=== PATIENT | female | born 1990 | race Caucasian/White ===

== ENCOUNTER 2016-11-14 06:17 | Inpatient (IN) | payer OTHER ==
[2016-11-14 07:12] LABS: APPEARANCE,URINE CLEAR; BILIRUBIN,URINE NEGATIVE (NEGATIVE); GLUCOSE, URINE NEGATIVE (NEGATIVE); KETONES,URINE NEGATIVE (NEGATIVE); LEUKOCYTE ESTERASE,URINE TRACE (NEGATIVE); NITRITE,URINE NEGATIVE (NEGATIVE); PROTEIN,URINE NEGATIVE (NEGATIVE); URINE SPECIFIC GRAVITY 1.004; UROBILINOGEN,URINE NEGATIVE mg/dL (<2.0)
[2016-11-14 07:22] LABS: URINE BARBITURATES SCREEN NEGATIVE; URINE METHADONE SCREEN NEGATIVE; URINE OPIATES LOW NEGATIVE; URINE PHENCYCLIDINE SCREEN NEGATIVE
[2016-11-14 07:25] LABS: ABSOLUTE EOSINOPHILS # (AUTO) 0.1 10^3/uL (0.0-0.6); ABSOLUTE LYMPHOCYTES (AUTO) 1.2 10^3/uL (0.5-4.7); ABSOLUTE MONOCYTES (AUTO) 0.5 10^3/uL (0.1-1.4); ABSOLUTE NEUT (AUTO) 8.6 10^3/uL (1.7-8.2); BASOPHILS % (AUTO) 0.5 % (0-2); EOSINOPHILS % (AUTO) 0.9 % (0-6); HEMATOCRIT 31.5 % (36.0-47.0); HEMOGLOBIN 10.1 g/dL (12.0-15.5); HGB HCT DIFFERENCE -1.2; LYMPHOCYTES % (AUTO) 11.8 % (13-45); MEAN CORPUSCULAR HEMOGLOBIN 23.1 pg (27.0-33.4); MEAN CORPUSCULAR HGB CONC 32.1 g/dL (32.0-36.0); MEAN CORPUSCULAR VOLUME 72 fl (80-97); MONOCYTES % (AUTO) 4.8 % (3-13); RED BLOOD COUNT 4.37 10^6/uL (3.72-5.28); RED CELL DISTRIBUTION WIDTH 19.2 % (11.5-14.0); WHITE BLOOD COUNT 10.4 10^3/uL (4.0-10.5)
--- NOTE | 2016-11-14 08:01 | L&D Flow Sheet ---
LD Flowsheet Datetime Report Generated by CPN: 11/14/2016 08:00 Datetime: 11/14/2016 07:15 Communication Communication: Report Given to @ A.Abbasi, RN; care relinquished at this time. (Gabriella Field, RN) Datetime: 11/14/2016 07:12 Vital Signs NBP Sys/Nadia/Mean (mmHg): 106 (QS system process) : 69 (QS system process) : 82 (QS system process) Pulse: 81 (QS system process) Datetime: 11/14/2016 07:03 Communication Comments: Call placed to u/s, ETA 10 minutes (Shelby Emelyn, RN) Datetime: 11/14/2016 07:00 Uterine Activity Monitor Mode: External; Palpation ([facility], RN) Frequency (min): 3.5-5.5 ([facility], RN) Quality: Mild/Moderate (Gabriella Field, RN) Duration (sec): 60-100 ([facility], RN) Resting Tone (Palpate): Relaxed (Gabriella Field, RN) Assessment A Monitor Mode: External US (Gabriella Field, RN) FHR Baseline Rate : 115 (Gabriella Field, RN) Variability: Moderate 6-25 bpm (Gabriella Field, RN) Accelerations: None (Gabriella Field, RN) Decelerations: Variable (Gabriella Field, RN) Datetime: 11/14/2016 06:52 Frequency (min): q6 min (Psychiatric) Pain Pain Scale: 4 (Psychiatric) Pain Presence: Intermittent (Psychiatric) Pain Type: Cramping; Contraction (Psychiatric) Pain Location: Abdomen (Psychiatric) Pain Goal: 0 (Psychiatric) Pain Relief Measures: Comfort Measures (Psychiatric) Pain Coping: Talking Through Contractions; Breathing Through Contractions (Psychiatric) Vaginal Exam Vaginal Bleeding: Normal Show (Gabriella Field, RN) Maternal Assessment Level of Consciousness: Fully Conscious (Gabriella Field, RN) DTR's/Clonus: DTRs 1+; No Clonus (Gabriella Field, RN) Headache: Denies (Gabriella Field, RN) Breath Sounds, Left: Clear and Equal (Gabriella Field, RN) Breath Sounds, Right: Clear and Equal (Gabriella Field, RN) Nausea/Vomiting: Denies (Gabriella Field, RN) RUQ Epigastric Pain: Denies (Gabriella Field, RN) Teaching Instructional Method: Verbal; Patient Instructed; Verbalized Understanding (Gabriella Harman, RN) Plan of Care: Plan of Care Discussed (Gabriella Harman, RN) Unit Routine: [place] to Room; Call [place]; Bed; Visiting Policy; Waiting Areas; Phone/Cell Phone Use; Unit Personnel; Handwashing; Flu/Illness Precautions; Monitoring; Safety/Fall Risk Prevention; Bathroom Privileges (Gabriella Harman, RN) Datetime: 11/14/2016 06:40 Vital Signs NBP Sys/Nadia/Mean (mmHg): 116 (QS system process) : 77 (QS system process) : 91 (QS system process) Pulse: 97 (QS system process)
[2016-11-14] MEDS ORDERED: PENICILLIN G-K 5 MILLION UNIT VIAL ONE (08:11)
[2016-11-14] MEDS ORDERED: OXYTOCIN/NORMAL SALINE 20 UNIT/1,000 ML RTUINJ ONE (08:13)
[2016-11-14] MEDS ORDERED: LIDOCAINE 1% INJ-PF (10 MG/ML) 30 ML SDV ONE (08:13)
[2016-11-14] MEDS ORDERED: MISOPROSTOL 0.2 MG TABLET ONE (08:13)
[2016-11-14] MEDS ORDERED: OXYTOCIN/NORMAL SALINE 1,000 ML IV PRN (08:38)
[2016-11-14] MEDS ORDERED: ACETAMINOPHEN WITH CODEINE #3 TABLET PO PRN ×2 (08:38)
[2016-11-14] MEDS ORDERED: DIPH/PERTUSS(ACELL)/TETANUS VAC/PF 0.5 ML SYR (>=10YO) IM PRN (08:38)
[2016-11-14] MEDS ORDERED: ZOLPIDEM TARTRATE 5 MG TABLET PO PRN (08:38)
[2016-11-14] MEDS ORDERED: DIBUCAINE 1% OINTMENT 28 GM TP PRN (08:38)
[2016-11-14] MEDS ORDERED: BENZOCAINE/MENTHOL AEROSOL SPRAY 56 ML TOP PRN (08:38)
[2016-11-14] MEDS ORDERED: MEASLES,MUMPS&RUBELLA VACC/PF 0.5 ML VIAL SUBCUT PRN (08:38)
--- NOTE | 2016-11-14 09:12 | Delivery Summary ---
Del Sum A-C Datetime Report Generated by CPN: 11/14/2016 09:12 ADMISSION DATA Chief Complaint: Uterine Contractions Indication for Induction: Not Applicable Admission Impression: , Intrauterine Admit Provider Comments: 26yo at unknown ega due to no PNC. US done and estimate is 36wks. GBS unknown. PCN for GBS prophy. Ctx regular and stronger. Cvx 9/c/+1. All labs done and GBS collected. Pt has Adoption Agency that she has contacted last evening. DELIVERY PERSONNEL Delivery Doctor:: Aixa Lambert MD Labor and Delivery Nurse:: Valeria Abbasi RNwet plant operator Nurse:: Marjorie Westfall RN Nursery Nurse:: Gali Dickerson RN Student Observers:: Charleen Thrasher [employer] SN Roseanne Hernandez [facility] Furniture Fabricator/CONTRACTS MANAGER: ST [facility] Additional Personnel: : Chanel Lindquist RN MATERNAL INFORMATION Delivery Anesthesia: None Medications After Delivery: Pitocin Drip 20 Units/1000ml NSS Meds After Delivery Comment: 20 units Pitocin in 1 L NS bolusing per order Estimated Blood Loss (ml): 200 Maternal Complications: Precipitous Labor (<3hrs) Provider Comments: VMI delivered in MAGDIEL presentation with compound cord. No nuchal cord. SHoulders and body delivered w/o diffculty. Pt declines skin to skin due to giving up baby for adoption. Perineal laceration repaired. Placenta delivered intact spontaneously. FF at U. Good hemostasis after repair. Mother stable upon provider leaving the room. Baby to Nursery. Apgars 9/9. Weight 6#15oz LABOR SUMMARY EDC: 12/12/2016 00:00 No. Babies in Womb: 1 Attempted: No Labor Anesthesia: None LABOR INFORMATION Reason for Induction: Not Applicable Complete Dilatation: 11/14/2016 08:20 Oxytocin: N/A Group B Beta Strep: unknown Antibiotics # of Doses: 1 Antibiotics Time of Last Dose: 812 Name of Antibiotic Given: PCN Steroids Given: None Reason Steroids Not Administered: Imminent Delivery MEMBRANES Membranes Rupture Method: Artificial Rupture of Membranes: 11/14/2016 08:20 Length of Rupture (hr): 0.03 Amniotic Fluid Color: Clear Amniotic Fluid Amount: Small Amniotic Fluid Odor: Normal STAGES OF LABOR Stage 2 hr: 0 Stage 2 min: 2 Stage 3 hr: 0 Stage 3 min: 3 VAGINAL DELIVERY Episiotomy: None Laceration Extension: First Degree Laceration Type: Perineal Laceration Repair: Yes Laceration Repair Note: Superficial perineal laceration repaired with 3-0 vicryl. Good hemostasis Sponge Count Correct: N/A Sharps Count Correct: Yes CSECTION DELIVERY Primary Indication: N/A Secondary Indication: N/A CSection Incidence: N/A Labor: N/A Elective: N/A BABY A INFORMATION Delivery Date/Time: 11/14/2016 08:22 Method of Delivery: Vaginal Born in Route : No : N/A Forceps: N/A Vacuum Extraction: N/A Shoulder Dystocia : No PRESENTATION/POSITION BABY A Presentation: Cephalic Cephalic Presentation: Vertex Vertex Position: Left Occipital Anterior Breech Presentation: N/A PLACENTA INFORMATION BABY A Placenta Delivery Time : 11/14/2016 08:25 Placenta Method of Delivery: Spontaneous Placenta Status: Delivered SCORES BABY A Heart Rate 1 min: >100 bpm Resp Effort 1 min: Good Cry Reflex Irritability 1 min: Cough or Sneeze or Pulls Away Muscle Tone 1 min: Active Motion Color 1 min: Body [place], Extremities Blue Resuscitation Effort 1 min: Tactile Stimulation SCORE 1 MIN: 9 Heart Rate 5 min: >100 bpm Resp Effort 5 min: Good Cry Reflex Irritability 5 min: Cough or Sneeze or Pulls Away Muscle Tone 5 min: Active Motion Color 5 min: Body [place], Extremities Blue Resuscitation Effort 5 min: N/A SCORE 5 MIN: 9 INFORMATION BABY A Gestational Age at Delivery: 36.0 Gestational Status: Late - 34- 36.6 Weeks Infant Outcome : Liveborn Infant Condition : Stable Sex: Male IDENTIFICATION BABY A Verification Date/Time: 11/14/2016 08:46 ID Band Number: [id number] Mother's Name Verified: Yes RN Verifying : Patricia Abbasi RN / SCory Hamm RN WEIGHT/LENGTH BABY A Birthweight (gm): 3135 Weight (lb): 6 Weight (oz): 15 Length (in): 20.00 Infant Length (cm): 50.80 CORD INFORMATION BABY A No. Cord Vessels: 3 Nuchal Cord : N/A Nuchal Cord- Other: compound cord Suction: Mouth; Nose ASSESSMENT BABY A Infant Complications: Other Infant Complications- Other: terminal meconium Physical Findings at Delivery: Within Normal Limits Infant Respirations: Appears Normal Skin to Skin: No Skin to Skin Time (min): 0 Cross Country/Track And Field Coach/ALS Called : No Care By: Corey Lindquist RNC Transferred To: Nursery BABY B INFORMATION : N/A SIGNATURES Signature: with User ID: Paolo
--- NOTE | 2016-11-14 10:00 | L&D Flow Sheet ---
LD Flowsheet Datetime Report Generated by CPN: 11/14/2016 10:00 Datetime: 11/14/2016 09:52 NBP Sys/Nadia/Mean (mmHg): 107 (QS system process) : 65 (QS system process) : 81 (QS system process) Pulse: 67 (QS system process) Datetime: 11/14/2016 09:36 Stage of : Recovery (Valeriaflavio Abbasi, RN) NBP Sys/Nadia/Mean (mmHg): 107 (QS system process) : 67 (QS system process) : 81 (QS system process) Pulse: 92 (QS system process) Pain Scale: 0 (Valeria Abbasi RN) Pain Presence: None/Denies (Valeria Abbasi RN) Pain Type: N/A (Valeria Abbasi RN) Datetime: 11/14/2016 09:22 NBP Sys/Nadia/Mean (mmHg): 107 (QS system process) : 63 (QS system process) : 80 (QS system process) Pulse: 80 (QS system process) Datetime: 11/14/2016 09:20 Stage of : Recovery (Valeria Abbasi RN) Pain Scale: 0 (Valeria Abbasi RN) Pain Presence: None/Denies (Valeria Abbasi RN) Pain Type: N/A (Valeria Abbasi RN) Datetime: 11/14/2016 09:07 NBP Sys/Nadia/Mean (mmHg): 110 (QS system process) : 64 (QS system process) : 81 (QS system process) Pulse: 82 (QS system process) Datetime: 11/14/2016 09:05 Stage of : Recovery (Valeria Abbasi, RN) Pain Scale: 0 (Valeria Abbasi, RN) Pain Presence: None/Denies (Valeria Abbasi, RN) Pain Type: N/A (Valeria Abbasi, RN) Datetime: 11/14/2016 08:50 Stage of : Recovery (Valeria Abbasi, RN) Pain Scale: 0 (Valeria Abbasi, RN) Pain Presence: None/Denies (Valeria Abbasi, RN) Pain Type: N/A (Valeria Abbasi, RN) Datetime: 11/14/2016 08:35 Stage of : Recovery (Valeria Abbasi RN) NBP Sys/Nadia/Mean (mmHg): 105 (QS system process) : 60 (QS system process) : 78 (QS system process) Pulse: 78 (QS system process) Respirations: 14 (Valeria Abbasi RN) Temperature (F): 97.9 (Valeria Abbasi RN) Temperature (C): 36.6 (QS system process) Pain Scale: 0 (Valeria Abbasi RN) Pain Presence: None/Denies (Valeria Abbasi RN) Pain Type: N/A (Valeria Abbasi RN) Datetime: 11/14/2016 08:25 Stage of : Recovery (Valeria Abbasi RN) Datetime: 11/14/2016 08:21 Pushing: Coached on Pushing (Valeria Abbasi RN) Pushing: No Urge to Push; Involuntary Pushing (Valeria Abbasi, RN) Pushing Position: Pushing with Contractions; Pushing Lithotomy (Valeria Abbasi, RN) Pushing Progress: Descent with Pushing; Presenting Part Visible (Valeria Abbasi RN) Communication Comments: nursery notified of impending delivery (Valeria Abbasi, RN) Datetime: 11/14/2016 08:20 Dilatation (cm): 10.0 (Valeria Abbasi RN) Effacement (%): 100 (Valeria Abbasi, RN) Station: 2 (Valeria Abbasi, RN) Exam by: Dr. Lambert (Valeria Abbasi, RN) Datetime: 11/14/2016 08:18 Communication Comments: Dr. Lambert at bedside (Valeria Abbasi, RN) Datetime: 11/14/2016 08:15 Monitor Mode: External; Palpation (Valeria Abbasi, RN) Frequency (min): 3-4 (Valeria Abbasi, RN) Quality: Moderate (Valeria Abbasi, RN) Duration (sec): 60-80 (Valeria Abbasi, RN) Resting Tone (Palpate): Relaxed (Valeria Abbasi, RN) Monitor Mode: External US (Valeria Abbasi, RN) FHR Baseline Rate : 125 (Valeria Abbasi, RN) Variability: Moderate 6-25 bpm (Valeria Abbasi, RN) Accelerations: 15X15 (Valeria Abbasi, RN) Decelerations: Variable (Valeria Abbasi, RN) Datetime: 11/14/2016 08:14 IV/Blood Work: IV Infusing per Order (Aaliyah Wallis, KARO) Procedures: Consents Signed (Aaliyah Wallis, RN) Datetime: 11/14/2016 08:13 Antibiotics: Penicillin IV (Units) @ 5 million (Valeria Abbasi RN) Datetime: 11/14/2016 08:11 NBP Sys/Nadia/Mean (mmHg): 121 (QS system process) : 87 (QS system process) : 100 (QS system process) Pulse: 78 (QS system process) Procedures: Consents Signed (Valeria Abbasi RN) LaborFlag: Labor (QS system process) Datetime: 11/14/2016 08:09 Dilatation (cm): 9.0 (Valeria Abbasi RN) Effacement (%): 100 (Valeria Abbasi RN) Station: 1 (Valeria Abbasi RN) Exam by: Dr. Lambert (Valeria Abbasi RN) Communication: Provider at Bedside (Marjorie Westfall RN) Communication Comments: Dr. Lambert at bedside (Marjorie Westfall, KARO) Datetime: 11/14/2016 08:00 Monitor Mode: External; Palpation (Valeria Abbasi RN) Frequency (min): 3-4 (Valeria Abbasi RN) Quality: Moderate (Valeria Abbasi RN) Duration (sec): 60-80 (Valeria Abbasi RN) Resting Tone (Palpate): Relaxed (Valeria Abbasi RN) Monitor Mode: External US (Valeria Abbasi RN) FHR Baseline Rate : 125 (Valeria Abbasi RN) Variability: Moderate 6-25 bpm (Valeria Abbasi, RN) Accelerations: 15X15 (Valeria Abbasi, RN) Decelerations: Variable (Valeria Abbasi RN)
--- NOTE | 2016-11-14 10:44 | Admission Physical ---
Datetime Report Generated by CPN: 11/14/2016 10:43 CURRENT ADMISSION Chief Complaint: Uterine Contractions Indication for Induction: Not Applicable Admit Plan: Admit to Unit; Initiate Labor Protocol ALLERGIES Medication Allergies: No Medication Allergies: No Known Allergies (11/14/2016) Latex: No Latex Allergies Food Allergies: N/A Environmental Allergies: N/A OBSTETRICAL HISTORY EDC: 12/12/2016 00:00 : 3 Para: 2 Gestational Diabetes: No Rh Sensitization: No Incompetent Cervix: No NICOLÁS: No Infertility: No ART Treatment: No Uterine Anomaly: No IUGR: No Hx Previous C/S: No Macrosomia: No Hx Loss/Stillborn: No PIH: No Hx : No Placenta Previa/Abruption: No Depression/PP Depression: No PTL/PROM: No Post Hemorrhage: No Current Procedures: None Obstetrical History Comments: 2012 - , girl 2014 - , adopted 2016 - current SEE RECORDS Alcohol: No Marijuana : No Cocaine: No Other Illicit Drugs: No Cigarettes: Never Smoker. 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 Surgery: No Heart Disease: No Hosp/Surgery: No Autoimmune Disorder: No Anesthetic Complications: No Kidney Disease: No Abnormal Pap Smear: Yes Neuro/Epilepsy: No Psychiatric Disorders: No Other Medical Diseases: No Hepatitis/Liver Disease: No Significant Family History: No Varicosities/Phlebitis: No Trauma/Violence : No Thyroid Dysfunction: No Medical History Comments: Abnormal pap 2013 INFECTIOUS HISTORY Gonorrhea: No Genital Herpes: No Chlamydia: No Tuberculosis: No Syphilis: No Hepatitis: No HIV/AIDS Exposure: No Rash or Viral Illness: No HPV: No PHYSICAL EXAM General: Normal HEENT: Normal Neurologic: Normal Thyroid: Normal Heart: Normal Lungs: Normal Breast: Deferred Back: Normal Abdomen: Normal Genitourinary Exam: Normal Extremities: Normal DTRs: Normal Pelvic Type: Adequate Vital Signs: Reviewed; Within Normal Limits VAGINAL EXAM Dilatation: 9 Effacement: 100 Station: 1 FETUS A EGA: 36.0 Monitoring: External US FHR- Baseline: 120 Accelerations: 15X15 Decelerations: None Presentation: Vertex Admit Comment: 26yo at unknown ega due to no PNC. US done and estimate is 36wks. GBS unknown. PCN for GBS prophy. Ctx regular and stronger. Cvx 9/c/+1. All labs done and GBS collected. Pt has Adoption Agency that she has contacted last evening. PLANS FOR LABOR AND DELIVERY Labor and Delivery: None Pain Management: Epidural Feeding Preference: Formula Benefit of Breast Feed Discussed: Yes INFORMED CONSENT Signature: with User ID: Paolo
[2016-11-14 10:54] LABS: ADD HIVPANEL? NO; HIV (1 AND 2) ANTIBODY NEGATIVE (NEGATIVE)
[2016-11-14] MEDS ORDERED: INFLUENZA ADLT QUAD (36MOS+) 2016-17 VAC 0.5 ML SYR IM PRN (11:49)
[2016-11-14 12:11] LABS: CHLAM PCR NOT DETECTED (NOT DETECT)
[2016-11-14] MEDS: IBUPROFEN 800 MG TABLET PO SCH ×2 (13:52→21:17)
[2016-11-14] MEDS: DOCUSATE SODIUM 100 MG CAPSULE PO SCH ×2 (13:57→17:54)
[2016-11-14] MEDS: PRENATAL VITAMIN W-O CA NO5/FE FUMARATE/FA CAPSULE PO SCH (13:57)
[2016-11-14] MEDS: FERROUS SULFATE 325 MG TABLET PO SCH ×2 (13:57→17:54)
[2016-11-14] MEDS: SENNOSIDES/DOCUSATE 8.6-50 MG 1 EACH TABLET PO SCH (13:57)
--- NOTE | 2016-11-14 19:01 | L&D Flow Sheet ---
LD Flowsheet Datetime Report Generated by CPN: 11/14/2016 19:00 Datetime: 11/14/2016 10:25 Stage of : Recovery (Valeria Abbasi, RN) Datetime: 11/14/2016 10:20 Stage of : Recovery (Valeria Abbasi RN) Pain Scale: 0 (Valeria Abbasi RN) Pain Presence: None/Denies (Valeria Abbasi RN) Pain Type: N/A (Valeria Abbasi RN) Datetime: 11/14/2016 10:07 NBP Sys/Nadia/Mean (mmHg): 102 (QS system process) : 59 (QS system process) : 75 (QS system process) Pulse: 90 (QS system process) Datetime: 11/14/2016 10:05 Stage of : Recovery (Valeria Elroy, RN) Pain Scale: 0 (Valeriaflavio Abbasi, RN) Pain Presence: None/Denies (Valeriaflavio Abbasi, RN) Pain Type: N/A (Valeria Elroy, RN) Datetime: 11/14/2016 09:52 NBP Sys/Nadia/Mean (mmHg): 107 (QS system process) : 65 (QS system process) : 81 (QS system process) Pulse: 67 (QS system process) Datetime: 11/14/2016 09:50 Stage of : Recovery (Valeria Abbasi RN) Pain Scale: 0 (Valeria Abbasi RN) Pain Presence: None/Denies (Valeria Abbasi RN) Pain Type: N/A (Valeria Abbasi, RN) Datetime: 11/14/2016 09:36 Stage of : Recovery (Valeria Abbasi, RN) NBP Sys/Nadia/Mean (mmHg): 107 (QS system process) : 67 (QS system process) : 81 (QS system process) Pulse: 92 (QS system process) Pain Scale: 0 (Valeria Abbasi RN) Pain Presence: None/Denies (Valeria Abbasi, RN) Pain Type: N/A (Valeria Abbasi, RN) Datetime: 11/14/2016 09:22 NBP Sys/Nadia/Mean (mmHg): 107 (QS system process) : 63 (QS system process) : 80 (QS system process) Pulse: 80 (QS system process) Datetime: 11/14/2016 09:20 Stage of : Recovery (Valeria Abbasi, RN) Pain Scale: 0 (Valeria Abbasi, RN) Pain Presence: None/Denies (Valeria Abbasi, RN) Pain Type: N/A (Valeria Abbasi, RN) Datetime: 11/14/2016 09:07 NBP Sys/Nadia/Mean (mmHg): 110 (QS system process) : 64 (QS system process) : 81 (QS system process) Pulse: 82 (QS system process) Datetime: 11/14/2016 09:05 Stage of : Recovery (Valeria Abbasi, RN) Pain Scale: 0 (Valeria Abbasi, RN) Pain Presence: None/Denies (Valeria Abbasi, RN) Pain Type: N/A (Valeria Abbasi, RN) Datetime: 11/14/2016 08:50 Stage of : Recovery (Valeria Abbasi, RN) Pain Scale: 0 (Valeria Abbasi, RN) Pain Presence: None/Denies (Valeria Abbasi, RN) Pain Type: N/A (Valeria Abbasi, RN) Datetime: 11/14/2016 08:35 Stage of : Recovery (Valeria Abbasi RN) NBP Sys/Nadia/Mean (mmHg): 105 (QS system process) : 60 (QS system process) : 78 (QS system process) Pulse: 78 (QS system process) Respirations: 14 (Valeria Abbasi RN) Temperature (F): 97.9 (Valeria Abbasi RN) Temperature (C): 36.6 (QS system process) Pain Scale: 0 (Valeria Abbasi RN) Pain Presence: None/Denies (Valeria Abbasi RN) Pain Type: N/A (Valeria Abbasi RN) Datetime: 11/14/2016 08:25 Stage of : Recovery (Valeria Abbasi RN) Datetime: 11/14/2016 08:21 Pushing: Coached on Pushing (Valeria Abbasi RN) Pushing: No Urge to Push; Involuntary Pushing (Valeria Abbasi RN) Pushing Position: Pushing with Contractions; Pushing Lithotomy (Valeria Abbasi RN) Pushing Progress: Descent with Pushing; Presenting Part Visible (Valeria Abbasi RN) Communication Comments: nursery notified of impending delivery (Valeria Abbasi RN) Datetime: 11/14/2016 08:20 Monitor Mode: External US (Valeria Abbasi RN) FHR Baseline Rate : 120 (Valeria Abbasi RN) Variability: Moderate 6-25 bpm (Valeria Abbasi RN) Accelerations: 15X15 (Valeria Abbasi, RN) Decelerations: None (Valeria Abbasi, RN) Dilatation (cm): 10.0 (Valeria Abbasi, RN) Effacement (%): 100 (Valeria Abbasi, RN) Station: 2 (Valeria Abbasi RN) Exam by: Dr. Lambert (Valeria Abbasi, RN) Datetime: 11/14/2016 08:18 Communication Comments: Dr. Lambert at bedside (Valeria Abbasi RN) Datetime: 11/14/2016 08:15 Monitor Mode: External; Palpation (Valeria Abbasi, RN) Frequency (min): 3-4 (Valeria Abbasi, RN) Quality: Moderate (Valeria Abbasi, RN) Duration (sec): 60-80 (Valeria Abbasi, RN) Resting Tone (Palpate): Relaxed (Valeria Abbasi RN) Monitor Mode: External US (Valeria Abbasi, RN) FHR Baseline Rate : 125 (Valeria Abbasi, RN) Variability: Moderate 6-25 bpm (Valeria Abbasi, RN) Accelerations: 15X15 (Valeria Abbasi, RN) Decelerations: Variable (Valeria Abbasi, RN) Datetime: 11/14/2016 08:14 IV/Blood Work: IV Infusing per Order (Aaliyah Wallis, RN) Procedures: Consents Signed (Aaliyah Bradenard, RN) Datetime: 11/14/2016 08:13 Antibiotics: Penicillin IV (Units) @ 5 million (Valeria Abbasi RN) Datetime: 11/14/2016 08:11 NBP Sys/Nadia/Mean (mmHg): 121 (QS system process) : 87 (QS system process) : 100 (QS system process) Pulse: 78 (QS system process) Procedures: Consents Signed (Valeria Abbasi RN) LaborFlag: Labor (QS system process) Datetime: 11/14/2016 08:09 Dilatation (cm): 9.0 (Valeria Abbasi RN) Effacement (%): 100 (Valeria Abbasi RN) Station: 1 (Valeria Abbasi RN) Exam by: Dr. Lambert (Valeria Abbasi RN) Communication: Provider at Bedside (Marjorie Westfall RN) Communication Comments: Dr. Lambert at bedside (Marjorie Khoi, RN) Datetime: 11/14/2016 08:00 Monitor Mode: External; Palpation (Valeria Abbasi, RN) Frequency (min): 3-4 (Valeria Abbasi, RN) Quality: Moderate (Valeriaflavio Abbasi, RN) Duration (sec): 60-80 (Valeriaflavio Abbasi, RN) Resting Tone (Palpate): Relaxed (Valeria Abbasi, RN) Monitor Mode: External US (Valeria Abbasi, RN) FHR Baseline Rate : 125 (Valeria Abbasi, RN) Variability: Moderate 6-25 bpm (Valeriaflavio Abbasi, RN) Accelerations: 15X15 (Valeriaflavio Abbasi, RN) Decelerations: Variable (Valeria Abbasi, RN) Datetime: 11/14/2016 07:45 IV/Blood Work: IV Started; IV Bolus Started (Valeriafalvio Abbasi, RN) Datetime: 11/14/2016 07:40 Stage of : Labor (Aaliyah Powell, RN) Datetime: 11/14/2016 07:18 Communication Comments: U/S at bedside (Valeria Abbasi, RN) Datetime: 11/14/2016 07:15 Communication: Report Given to @ A.Abbasi, RN; care relinquished at this time. (Gabriella Field, RN) Datetime: 11/14/2016 07:12 NBP Sys/Nadia/Mean (mmHg): 106 (QS system process) : 69 (QS system process) : 82 (QS system process) Pulse: 81 (QS system process) Datetime: 11/14/2016 07:03 Communication Comments: Call placed to u/s, ETA 10 minutes (Shelby Dunaway RN) Datetime: 11/14/2016 07:00 Monitor Mode: External; Palpation (Gabriella Harman RN) Frequency (min): 3.5-5.5 (Gabriella Harman RN) Quality: Mild/Moderate (Gabriella Harman RN) Duration (sec): 60-100 (Gabriella Harman RN) Resting Tone (Palpate): Relaxed (Gabriella Harman RN) Monitor Mode: External US (Gabriella Harman RN) FHR Baseline Rate : 115 (Gabriella Harman RN) Variability: Moderate 6-25 bpm (Gabriella Harman RN) Accelerations: None (Gabriella Harman RN) Decelerations: Variable (Gabriella Harman RN)
--- NOTE | 2016-11-15 06:01 | L&D General Admission ---
General Admit Datetime Report Generated by CPN: 11/15/2016 06:00 INFORMATION Patient Age: 26 (11/14/2016 06:19:QS system process) EDC: 12/12/2016 00:00 (11/14/2016 06:42:Marjorie Westfall RN) LMP: 01/24/2016 00:00 (11/14/2016 06:42:Gabriella Harman RN) : 3 (11/14/2016 06:42:Gabriella Harman RN) Para: 2 (11/14/2016 06:42:Gabriella Harman RN) Baby, Number in Womb: 1 (11/14/2016 06:42:Valeria Abbasi RN) CARE Primary Magneto Specialist: Other-Annotate (11/14/2016 06:42:Gabriella Harman RN) Magneto Specialist Other: No PNC (11/14/2016 06:42:Valeria Abbasi RN) Adequate Care: No (11/14/2016 06:42:Gabriella Harman RN) Height (in): 60 (11/14/2016 07:28:QS system process) ALLERGIES Medication Allergy: No (11/14/2016 06:42:Gabriella Harman RN) Medication Allergies: No Known Allergies (11/14/2016) (11/14/2016 07:28:QS system process) Latex Allergy: No Latex Allergies (11/14/2016 06:42:Gabriella Harman RN) Food Allergies: N/A (11/14/2016 06:42:Gabriella Harman RN) Environmental Allergies: N/A (11/14/2016 06:42:Gabriella Harman RN) COMMUNICATION Primary Language: Finnish (11/14/2016 06:42:Gabriella Harman RN) Medical Tx Preferred Language: Finnish (11/14/2016 06:42:Gabriella Harman RN) Communication Barrier(s): None (11/14/2016 06:42:Gabriella Harman RN) DEMOGRAPHICS Address: [address] [place] [id number] (11/14/2016 06:19:QS system process) Zipcode: [address] (11/14/2016 06:19:QS system process) Home (11/14/2016 06:19:QS system process) SSN: [id number] (11/14/2016 06:19:QS system process) Next of Kin Name: WILEY CHÁVEZ (11/14/2016 06:19:QS system process) Next of Kin (11/14/2016 06:19:QS system process) Next of Kin Relationship: OR (11/14/2016 06:19:QS system process) Date of : 1990 (11/14/2016 06:19:QS system process) Marital Status: Single (11/14/2016 06:19:QS system process) Sex: Female (11/14/2016 06:19:QS system process) Race: (11/14/2016 06:19:QS system process) Ethnicity: Non- or (11/14/2016 06:19:QS system process) Yazdanism: None (11/14/2016 06:19:QS system process) DRUG AND ALCOHOL USE Alcohol: No (11/14/2016 06:42:Gabriella Harman RN) Cigarettes: Never Smoker. [id number] (11/14/2016 06:42:Gabriella Harman RN) Marijuana: No (11/14/2016 06:42:Gabriella Harman RN) Cocaine: No (11/14/2016 06:42:Gabriella Harman RN) Other Illicit Drugs: No (11/14/2016 06:42:Gabriella Harman RN) VACCINE HISTORY Influenza Vaccine: No (11/14/2016 06:42:Gabriella Harman RN) Pneumococcal Vaccine: No (11/14/2016 06:42:Gabriella Harman RN) Tetanus Vaccine: No (11/14/2016 06:42:Gabriella Harman RN) Tdap Vaccine: No (11/14/2016 06:42:Gabriella Harman RN) Hepatitis B Vaccine: No (11/14/2016 06:42:Gabriella Harman RN) Entry Level Buyer: Other (11/14/2016 06:42:Gabriella Harman RN) Feeding Preference: Formula (11/14/2016 06:42:Gabriella Harman RN) Benefit of Breast Feed Discussed: Yes (11/14/2016 06:42:Gabriella Harman RN) Classes Attended: No (11/14/2016 06:42:Gabriella Harman RN) Tubal Ligation: No (11/14/2016 06:42:Gabriella Harman RN) Tubal Authorization Signed: N/A (11/14/2016 06:42:Gabriella Harman RN) Consent: N/A (11/14/2016 06:42:Gabriella Harman RN) Consent Signed: N/A (11/14/2016 06:42:Gabriella Harman RN) Pain Management Plans: Epidural (11/14/2016 06:42:Gabriella Harman RN) Plans for Labor and Delivery: None (11/14/2016 06:42:Gabriella Harman RN) Support Person: Sanjiv Chávez (11/14/2016 06:42:Gabriella Harman RN) Support Person Relationship: Significant Other (11/14/2016 06:42:Gabriella Harman RN) Cultural/Spritual Practice: No (11/14/2016 06:42:Gabriella Harman RN) Spir/Cult Dietary Needs: No (11/14/2016 06:42:Gabriella Harman RN) LIVING SITUATION/DISCHARGE PLAN Living Arrangements: House (11/14/2016 06:42:Gabriella Harman RN) Adequate Access to:: Electric; Heat; Refrigeration; Plumbing/Running water; Phone; Transportation (11/14/2016 06:42:Gabriella Harman RN) WIC Program: No (11/14/2016 06:42:Gabriella Harman RN) Discharge Hotel Assistant General Manager Person: Sanjiv Chávez (11/14/2016 06:42:Gabriella Harman RN) Person to Help after Discharge: Sanjiv Chávez (11/14/2016 06:42:Gabriella Harman RN) Currently Using Commun Resources: No (11/14/2016 06:42:Gabriella Harman RN) Outside Agency/Stem Dryer Maintainer: No (11/14/2016 06:42:Gabriella Harman RN) Car Seat for Discharge: No (11/14/2016 06:42:Gabriella Harman RN) Adoption Requested: Yes (11/14/2016 06:42:Gabriella Harman RN) Pt Contact w/ Post : No (11/14/2016 06:42:Gabriella Harman RN) LABS Blood Type: A Positive (11/14/2016 06:42:Marjorie Westfall RN) Hemoglobin: 10.1 L (11/14/2016 07:10:QS system process) Hematocrit: 31.5 L (11/14/2016 07:10:QS system process) MCV: 72 L (11/14/2016 07:10:QS system process) Group Beta Strep: unknown (11/14/2016 06:42:Valeria Abbasi RN) HIV Results: NEGATIVE (11/14/2016 07:10:QS system process) Rubella Titer: 13.20 (11/14/2016 07:10:QS system process) OB/PREVIOUS HISTORY LMP: 01/24/2016 00:00 (11/14/2016 06:42:Gabriella Harman RN) Previous Procedures: Ultrasound; NST (11/14/2016 06:42:Gabriella Harman RN) Current Procedures: None (11/14/2016 06:42:Gabriella Harman RN) History of Previous : No (11/14/2016 06:42:Gabriella Harman RN) History of Gestational Diabetes: No (11/14/2016 06:42:Gabriella Harman RN) History of PIH: No (11/14/2016 06:42:Gabriella Harman RN) History of Incompetent Cervix: No (11/14/2016 06:42:Gabriella Harman RN) History of Placenta Previa/Abrup: No (11/14/2016 06:42:Gabriella Harman RN) History of Macrosomia: No (11/14/2016 06:42:Gabriella Harman RN) History of IUGR: No (11/14/2016 06:42:Gabriella Harman RN) History of Hemorrhage: No (11/14/2016 06:42:Gabriella Hraman RN) History of Loss/Stillborn: No (11/14/2016 06:42:Gabriella Harman RN) History of : No (11/14/2016 06:42:Gabriella Harman RN) History of D (Rh) Sensitization: No (11/14/2016 06:42:Gabriella Harman RN) History Recurrent Loss/Stillborn: No (11/14/2016 06:42:Gabriella Harman RN) History Depression/PP Depression: No (11/14/2016 06:42:Gabriella Harman RN) History of Uterine Anomaly/NICOLÁS: No (11/14/2016 06:42:Gabriella Harman RN) History of Infertility: No (11/14/2016 06:42:Gabriella Harman RN) History of ART Treatment: No (11/14/2016 06:42:Gabriella Harman RN) History of NICOLÁS: No (11/14/2016 06:42:Gabriella Harman RN) Comments Obstetrical History: 2012 - , girl 2015 - , adopted 2017 - current (11/14/2016 06:42:Gabriella Harman RN) MEDICAL HISTORY Med Hx Diabetes: No (11/14/2016 06:42:Gabriella Harman RN) Med Hx Hypertension: No (11/14/2016 06:42:Gabriella Harman RN) Med Hx Heart Disease: No (11/14/2016 06:42:Gabriella Harman RN) Med Hx Autoimmune Disorder: No (11/14/2016 06:42:Gabriella Harman RN) Med Hx Kidney Disease/UTI: No (11/14/2016 06:42:Gabriella Harman RN) Med Hx Neurologic/Epilepsy: No (11/14/2016 06:42:Gabriella Harman RN) Med Hx Psychiatric Disorders: No (11/14/2016 06:42:Gabriella Harman RN) Med Hx Hepatitis/Liver Disease: No (11/14/2016 06:42:Gabriella Harman RN) Med Hx Varicosities/Phlebitis: No (11/14/2016 06:42:Gabriella Harman RN) Med Hx Thyroid Dysfunction: No (11/14/2016 06:42:Gabriella Harman RN) Med Hx Trauma/Violence: No (11/14/2016 06:42:Gabriella Harman RN) Med Hx Blood Transfusion: No (11/14/2016 06:42:Gabriella Harman RN) Med Hx Pulmonary (Asthma,TB): No (11/14/2016 06:42:Gabriella Harman RN) Med Hx Breast: No (11/14/2016 06:42:Gabriella Harman RN) Med Hx HEAVY EQUIPMENT ENGINE MECHANIC Surgery: No (11/14/2016 06:42:Gabriella Harman RN) Med Hx Hospitalization/Surgery: No (11/14/2016 06:42:Gabriella Harman RN) Med Hx Anesthetic Complications: No (11/14/2016 06:42:Gabriella Harman RN) Med Hx Abnormal Pap Smear: Yes (11/14/2016 06:42:Gabriella Harman RN) Other Medical Diseases: No (11/14/2016 06:42:Gabriella Harman RN) Med Hx Significant Family Hx: No (11/14/2016 06:42:Gabriella Harman RN) Details of Med/Surg Hx: Abnormal pap 2012 (11/14/2016 06:42:Gabriella Harman RN) INFECTIOUS HISTORY Inf Hx Gonorrhea: No (11/14/2016 06:42:Gabriella Harman RN) Inf Hx Chlamydia: No (11/14/2016 06:42:Gabriella Harman RN) Inf Hx Syphilis: No (11/14/2016 06:42:Gabriella Harman RN) Inf Hx HIV/AIDS: No (11/14/2016 06:42:Gabriella Harman RN) Inf Hx Human Papilloma Virus: No (11/14/2016 06:42:Gabriella Harman RN) Inf Hx Pt/Partner Genital Herpes: No (11/14/2016 06:42:Gabriella Harman RN) Inf Hx Tuberculosis/Exposure: No (11/14/2016 06:42:Gabriella Harman RN) Inf Hx Hepatitis B,C: No (11/14/2016 06:42:Gabriella Harman RN) Inf Hx Rash or Viral Illness: No (11/14/2016 06:42:Gabriella Harman RN) GENETIC HISTORY Gen Hx Age >=35 at LOREN: No (11/14/2016 06:42:Gabriella Harman RN) Gen Hx Thalassemia: No (11/14/2016 06:42:Gabriella Harman RN) Gen Hx Congenital Heart Defect: No (11/14/2016 06:42:Gabriella Harman RN) Gen Hx Neural Tube Defect: No (11/14/2016 06:42:Gabriella Harman RN) Gen Hx Down's Syndrome: No (11/14/2016 06:42:Gabriella Harman RN) Gen Hx Carlton-Sachs: No (11/14/2016 06:42:Gabriella Harman RN) Gen Hx Kari: No (11/14/2016 06:42:Gabriella Harman RN) Gen Hx Familial Dysautonomia: No (11/14/2016 06:42:Gabriella Hamran RN) Gen Hx Sickle Cell Disease/Trait: No (11/14/2016 06:42:Gabriella Harman RN) Gen Hx Hemophilia/Blood Disorder: No (11/14/2016 06:42:Gabriella Harman RN) Gen Hx Muscular Dystrophy: No (11/14/2016 06:42:Gabriella Harman RN) Gen Hx Cystic Fibrosis: No (11/14/2016 06:42:Gabriella Harman RN) Gen Hx Huntingtons Chorea: No (11/14/2016 06:42:Gabriella Harman RN) Gen Hx Mental Retardation/Autism: No (11/14/2016 06:42:Gabriella Harman RN) Gen Hx Tested for Fragile X: No (11/14/2016 06:42:Gabriella Harman RN) Gen Hx Other Inher/Chromosomal: No (11/14/2016 06:42:Gabriella Harman RN) Gen Hx Maternal Metabolic DO: No (11/14/2016 06:42:Gabriella Harman RN) Gen Hx Pt Father or FOB Defect: No (11/14/2016 06:42:Gabriella Harman RN) Gen Hx Other Genetic History: No (11/14/2016 06:42:Gabriella Harman RN) Gen Hx Drugs/Meds since LMP: Yes (11/14/2016 06:42:Gabriella Harman RN) Gen Hx Medications: vitamins (11/14/2016 06:42:Gabriella Harman RN)
--- NOTE | 2016-11-15 06:01 | L&D Current Admission ---
Current Admit Datetime Report Generated by CPN: 11/15/2016 06:00 ADMISSION INFORMATION Chief Complaint: Contractions (11/14/2016 06:52:Gabriella Harman, KARO)
--- NOTE | 2016-11-15 06:16 | L&D Care Plan ---
LD CARE PLANS Datetime Report Generated by CPN: 11/15/2016 06:15 Datetime: 11/14/2016 08:16 Pain State: Risk For (Marjorie Westfall RN) Related To: Labor and Delivery Process (Marjorie Westfall RN) Goal(s): Patients Pain will be Assessed and Managed (Marjorie Westfall RN) Interventions: Assess Pain Severity on Scale of 0 (None) to 5 (Severe); Assess Type, Location and Intensity of Pain Each Time Client Reports Discomfort and Notify Provider if Unusal Pain Develops; Encourage Proper Breathing and Relaxation Techniques; Offer Alternatives Such as Repositioning, Calm Environment, Massages, Diversional Activities, Ice Pack, Splinting, and Ambulation; Administer Analgesics as Ordered; Assist with Epidural Placement as Appropriate; Evaluate Therapeutic Effectiveness of Medication and Treatments (Marjorie Westfall RN) Outcome: Patient will Report Absence or Relief of Pain Consistent with Established Pain Goal (Marjorie Westfall RN) Status: Ongoing (Marjorie Westfall RN) Anxiety State: Risk For (Marjorie Westfall RN) Related To: Labor and Delivery Process (Marjorie Westfall RN) Goal(s): Patient will have Decreased Anxiety and be able to Function at Acceptable Levels (Marjorie Westfall RN) Interventions: Assess Verbal and Nonverbal Behavioral Indicators of Anxiety; Assist Patient to Identify and Verbalize Symptoms of Anxiety; Identify and Demonstrate Techniques to Control Anxiety; Assist Patient with Coping Mechanisms to Manage Anxiety; Provide Theraputic Touch for the Patient; Explain to Patient, Using a Calm Reassuring Approach and Nonmedical Terms, All Activities, Procedures, and Concerns; Instruct Patient and Family about Post Discharge Care, Limitations, Symptoms to Report and Resources Available (Marjorie Westfall RN) Outcome: Patient will Identify, Verbalize and Demonstrate Techniques to Control Anxiety (Marjorie Westfall RN) Status: Ongoing (Annotations: Data stored by Flaquita on behalf of user) (Marjorie Westfall RN) Knowledge Deficit State: Risk For (Valeria Abbasi RN) Related To: Labor and Delivery Process (Valeria Abbasi RN) Goal(s): Patient will Accurately Verbalize Understanding of Plan of Care and Treatment; Patient and Family will Accurately Verbalize Understanding of the Disease Process (Valeria Abbasi RN)
[2016-11-15] MEDS: IBUPROFEN 800 MG TABLET PO SCH ×3 (06:17→21:16)
[2016-11-15 06:53] LABS: HEMATOCRIT 30.9 % (36.0-47.0); HEMOGLOBIN 9.9 g/dL (12.0-15.5); HGB HCT DIFFERENCE -1.2; MEAN CORPUSCULAR HEMOGLOBIN 23.5 pg (27.0-33.4); MEAN CORPUSCULAR HGB CONC 32.1 g/dL (32.0-36.0); MEAN CORPUSCULAR VOLUME 73 fl (80-97); RED BLOOD COUNT 4.21 10^6/uL (3.72-5.28); RED CELL DISTRIBUTION WIDTH 19.2 % (11.5-14.0); WHITE BLOOD COUNT 8.9 10^3/uL (4.0-10.5)
[2016-11-15 07:43] LABS: HEPATITIS C VIRUS AB <0.1 s/co ratio (0.0-0.9)
--- NOTE | 2016-11-15 10:15 | PDOC PROGRESS REPORT ---
Subjective-OB Subjective: Post Delivery Day: 26 year old. Denies any needs at this time. Adopting baby out-states no emotional problems-"I have a 4 yr old and we like just the three of us." States was using Depo as bc before . Physical Exam (OB) Vital Signs: Temp Pulse Resp BP Pulse Ox 97.4 F 79 16 112/50 L 100 11/15/16 08:27 11/15/16 08:27 11/15/16 08:27 11/15/16 08:27 11/15/16 08:27 Intake & Output 11/14/16 11/15/16 11/16/16 06:59 06:59 06:59 Weight 82.95 kg - Lochia Lochia Amount: Small 10-25 ml Lochia Color: Rubra/Red - Abdomen Description: Soft, Round Hernia Present: No Bowel Sounds: Normoactive Flatus Presence: Present Stool: No Fundal Description: Firm, Midline Fundal Height: u/u - u/2 Objective-Diagnostic Laboratory: 11/15/16 06:35 11/15/16 06:35 WBC 8.9 RBC 4.21 Hgb 9.9 L Hct 30.9 L MCV 73 L MCH 23.5 L MCHC 32.1 RDW 19.2 H Plt Count 177
[2016-11-15] MEDS: DOCUSATE SODIUM 100 MG CAPSULE PO SCH ×2 (10:24→17:20)
[2016-11-15] MEDS: PRENATAL VITAMIN W-O CA NO5/FE FUMARATE/FA CAPSULE PO SCH (10:24)
[2016-11-15] MEDS: SENNOSIDES/DOCUSATE 8.6-50 MG 1 EACH TABLET PO SCH (10:24)
[2016-11-15] MEDS: FERROUS SULFATE 325 MG TABLET PO SCH ×2 (10:24→17:20)
[2016-11-16] MEDS: IBUPROFEN 800 MG TABLET PO SCH ×2 (05:47→13:27)
[2016-11-16] MEDS: DOCUSATE SODIUM 100 MG CAPSULE PO SCH (09:23)
[2016-11-16] MEDS: PRENATAL VITAMIN W-O CA NO5/FE FUMARATE/FA CAPSULE PO SCH (09:23)
[2016-11-16] MEDS: FERROUS SULFATE 325 MG TABLET PO SCH (09:23)
[2016-11-16] MEDS: SENNOSIDES/DOCUSATE 8.6-50 MG 1 EACH TABLET PO SCH (09:23)
--- NOTE | 2016-11-16 10:32 | PDOC DISCHARGE SUMMARY ---
Final Diagnosis Discharge Date: 11/16/16 - Final Diagnosis (1) No care in current Is this a current diagnosis for this admission?: Yes (2) Delivery normal Is this a current diagnosis for this admission?: Yes Discharge Data - Discharge Medication Home Medications: Vit/Iron Fumarate/FA [ Tablet] 1 tab PO DAILY 09/21/15 Reason(s) for Admission: Onset of Labor Procedures: NST Intrapartum Procedure(s): Spontaneous Vaginal Delivery Complication(s): Laceration-Perineal Laceration-Degree: 1st - Diagnosis Test Laboratory: Temp Pulse Resp BP Pulse Ox 97.8 F 85 15 109/75 100 11/16/16 08:12 11/16/16 08:12 11/16/16 08:12 11/16/16 08:12 11/16/16 08:12 11/14/16 11/14/16 11/15/16 06:28 07:10 06:35 RBC 4.37 4.21 Hgb 10.1 L 9.9 L Hct 31.5 L 30.9 L Urine Opiates Screen NEGATIVE - Discharge information/Instructions Discharge Activity: Balance Activity w/Rest, Pelvic Rest Discharge Diet: Regular Disposition: HOME, SELF-CARE Follow up with: [facility] in: 4, Weeks
[2016-11-16 10:39] VITALS: BP 110/66
== END 2016-11-16 15:15 | disposition home or self-care (01) | DRG 775 ==
LOC: LC 06:17 → LR 08:14 → 2S 10:42
PROVIDERS: ADMIT Student in an Organized Health Care Education/Training Program; ATTEND Student in an Organized Health Care Education/Training Program
PROC: 10E0XZZ Delivery of Products of Conception, External Approach (ICD-10-PCS; principal; 2016-11-14)
PROC: 0HQ9XZZ Repair Perineum Skin, External Approach (ICD-10-PCS; 2016-11-14)
PROC: 3E0234Z Introduction of Serum, Toxoid and Vaccine into Muscle, Percutaneous Approach (ICD-10-PCS; 2016-11-16)
DX: O60.14X0 Preterm labor third trimester with preterm delivery third trimester, not applicable or unspecified (principal); O62.3 Precipitate labor; O70.0 First degree perineal laceration during delivery; O09.33 Supervision of pregnancy with insufficient antenatal care, third trimester; Z3A.36 36 weeks gestation of pregnancy; Z37.0 Single live birth; Z23 Encounter for immunization
CPT/HCPCS: 36415; 76815; 80307; 81001; 85025; 85027; 86592; 86701; 86762; 86803; 86804; 86850; 86900; 86901; 87081; 87340; 87491; 87591; 88307; 90686; J2540; J2590; J3490

== ENCOUNTER 2017-10-16 20:48 | Inpatient (IN) | payer OTHER ==
[2017-10-16] MEDS ORDERED: LIDOCAINE 1% INJ-PF (10 MG/ML) 30 ML SDV ONE (21:26)
[2017-10-16] MEDS ORDERED: PENICILLIN G-K 5 MILLION UNIT VIAL ONE (21:26)
[2017-10-16] MEDS ORDERED: OXYTOCIN/NORMAL SALINE 20 UNIT/1,000 ML RTUINJ ONE (21:26)
[2017-10-16] MEDS ORDERED: MISOPROSTOL 0.2 MG TABLET ONE (21:26)
[2017-10-16 21:45] LABS: ABSOLUTE EOSINOPHILS # (AUTO) 0.1 10^3/uL (0.0-0.6); ABSOLUTE LYMPHOCYTES (AUTO) 1.7 10^3/uL (0.5-4.7); ABSOLUTE MONOCYTES (AUTO) 0.7 10^3/uL (0.1-1.4); ABSOLUTE NEUT (AUTO) 8.2 10^3/uL (1.7-8.2); BASOPHILS % (AUTO) 0.3 % (0-2); EOSINOPHILS % (AUTO) 0.6 % (0-6); HEMATOCRIT 30.3 % (36.0-47.0); HEMOGLOBIN 9.5 g/dL (12.0-15.5); LYMPHOCYTES % (AUTO) 16.1 % (13-45); MEAN CORPUSCULAR HGB CONC 31.4 g/dL (32.0-36.0); MEAN CORPUSCULAR VOLUME 67 fl (80-97); MONOCYTES % (AUTO) 6.3 % (3-13); PLATELET COUNT 261 10^3/uL (150-450); RED BLOOD COUNT 4.53 10^6/uL (3.72-5.28); RED CELL DISTRIBUTION WIDTH 19.9 % (11.5-14.0); SEGMENTED NEUTROPHILS % (AUTO) 76.7 % (42-78); TOTAL CELLS COUNTED % (AUTO) 100 %; WHITE BLOOD COUNT 10.7 10^3/uL (4.0-10.5)
[2017-10-16 21:48] LABS: APPEARANCE,URINE SLIGHTLY-CLOUDY; BILIRUBIN,URINE NEGATIVE (NEGATIVE); COLOR,URINE YELLOW; GLUCOSE, URINE NEGATIVE (NEGATIVE); KETONES,URINE NEGATIVE (NEGATIVE); LEUKOCYTE ESTERASE,URINE LARGE (NEGATIVE); NITRITE,URINE NEGATIVE (NEGATIVE); PROTEIN,URINE NEGATIVE (NEGATIVE); URINE SPECIFIC GRAVITY 1.004
[2017-10-16] MEDS ORDERED: BENZOCAINE/MENTHOL AEROSOL SPRAY 56 ML TOP PRN (22:02)
[2017-10-16] MEDS ORDERED: MEASLES,MUMPS&RUBELLA VACC/PF 0.5 ML VIAL SUBCUT PRN (22:02)
[2017-10-16] MEDS ORDERED: PROMETHAZINE HCL 25 MG TABLET PO PRN (22:02)
[2017-10-16] MEDS ORDERED: PSEUDOEPHEDRINE HCL 30 MG TABLET PO PRN (22:02)
[2017-10-16] MEDS ORDERED: MAGNESIUM HYDROXIDE SUSP 30 ML UDCUP PO PRN (22:02)
[2017-10-16] MEDS ORDERED: NA PHOS,M-B/NA PHOS,DI-BA (ADULT) 133 ML ENEMA PR PRN (22:02)
[2017-10-16] MEDS ORDERED: DIPHENHYDRAMINE HCL 25 MG CAPSULE PO PRN (22:02)
[2017-10-16] MEDS ORDERED: ACETAMINOPHEN 650 MG SUPP.RECT PR PRN (22:02)
[2017-10-16] MEDS ORDERED: ZOLPIDEM TARTRATE 5 MG TABLET PO PRN (22:02)
[2017-10-16] MEDS ORDERED: OXYTOCIN/NORMAL SALINE 20 UNIT/1,000 ML RTUINJ IV PRN (22:02)
[2017-10-16] MEDS ORDERED: DIPH/PERTUSS(ACELL)/TETANUS VAC/PF 0.5 ML SYR (>=10YO) IM PRN (22:02)
[2017-10-16] MEDS ORDERED: PROMETHAZINE HCL 25 MG SUPP.RECT PR PRN (22:02)
[2017-10-16] MEDS ORDERED: GLYCERIN/WITCH HAZEL LEAF 1 EACH MED..PAD TP PRN (22:02)
[2017-10-16] MEDS ORDERED: ACETAMINOPHEN WITH CODEINE #3 TABLET PO PRN ×2 (22:02)
[2017-10-16] MEDS ORDERED: PROMETHAZINE HCL INJ 25 MG/1 ML VIAL IV PRN (22:02)
[2017-10-16] MEDS ORDERED: DIBUCAINE 1% OINTMENT 28 GM TP PRN (22:02)
[2017-10-16 22:10] LABS: URINE AMPHETAMINES SCREEN NEGATIVE; URINE BARBITURATES SCREEN NEGATIVE; URINE BENZODIAZEPINES SCREEN NEGATIVE; URINE COCAINE SCREEN NEGATIVE; URINE MARIJUANA (THC) SCREEN NEGATIVE; URINE METHADONE SCREEN NEGATIVE; URINE PHENCYCLIDINE SCREEN NEGATIVE
[2017-10-16] MEDS ORDERED: IBUPROFEN 800 MG TABLET ONE (22:13)
[2017-10-16 22:47] LABS: RUBELLA INTERPRETATION POSITIVE
--- NOTE | 2017-10-16 22:47 | Delivery Summary ---
Del Sum A-C Datetime Report Generated by CPN: 10/16/2017 22:46 DELIVERY PERSONNEL DELIVERY PERSONNEL: [id number] Delivery Doctor:: Nica Wsetfall MD Labor and Delivery Nurse:: Isha Sesay RN Labor and Delivery Nurse:: Shelby Dunaway RN Marketing Education Teacher:: Darshana Sam RN Nursery Nurse:: Valeria Cespedes RN Leather Cartridge Belt Maker/SUPERVISOR COREMAKER: Lisa Gilmore, ST MATERNAL INFORMATION Delivery Anesthesia: None Medications After Delivery: Pitocin Bolus-Please Comment Estimated Blood Loss (ml): 200 Maternal Complications: Precipitous Labor (<3hrs) Other Maternal Complications: no care Provider Comments: female with apgars of 9/9 to nursery after delivery due to maternal request as she is placing infant up for adoption. LABOR SUMMARY No. Babies in Womb: 1 Attempted: No Labor Anesthesia: None LABOR INFORMATION Reason for Induction: Not Applicable Onset of Labor: 10/16/2017 19:30 Complete Dilatation: 10/16/2017 21:44 Oxytocin: N/A Group B Beta Strep: unknown Antibiotics # of Doses: 0 Steroids Given: None Reason Steroids Not Administered: Not Applicable MEMBRANES Membranes Rupture Method: Spontaneous Rupture of Membranes: 10/16/2017 19:30 Length of Rupture (hr): 2.27 Amniotic Fluid Color: Clear Amniotic Fluid Amount: Small Amniotic Fluid Odor: Normal STAGES OF LABOR Stage 1 hr: 2 Stage 1 min: 14 Stage 2 hr: 0 Stage 2 min: 2 Stage 3 hr: 0 Stage 3 min: 4 Total Time in Labor hr: 2 Total Time in Labor min: 20 VAGINAL DELIVERY Episiotomy: None Laceration #1: None Laceration Extension #1: N/A Laceration Repair: Not Applicable Sponge Count Correct: N/A Sharps Count Correct: N/A CSECTION DELIVERY Primary Indication: N/A Secondary Indication: N/A CSection Incidence: N/A Labor: N/A Elective: N/A CSection Incision: N/A BABY A INFORMATION Delivery Date/Time: 10/16/2017 21:46 Method of Delivery: Vaginal Born in Route : No : N/A Forceps: N/A Vacuum Extraction: N/A Shoulder Dystocia : No PRESENTATION/POSITION BABY A Presentation: Cephalic Cephalic Presentation: Vertex Vertex Position: Right Occipital Anterior Breech Presentation: N/A PLACENTA INFORMATION BABY A Placenta Delivery Time : 10/16/2017 21:50 Placenta Method of Delivery: Spontaneous Placenta Status: Delivered SCORES BABY A Heart Rate 1 min: >100 bpm Resp Effort 1 min: Good Cry Reflex Irritability 1 min: Cough or Sneeze or Pulls Away Muscle Tone 1 min: Active Motion Color 1 min: Body [place], Extremities Blue Resuscitation Effort 1 min: Tactile Stimulation SCORE 1 MIN: 9 Heart Rate 5 min: >100 bpm Resp Effort 5 min: Good Cry Reflex Irritability 5 min: Cough or Sneeze or Pulls Away Muscle Tone 5 min: Active Motion Color 5 min: Body [place], Extremities Blue Resuscitation Effort 5 min: Tactile Stimulation SCORE 5 MIN: 9 INFANT INFORMATION BABY A Infant Outcome : Liveborn Infant Condition : Stable Sex: Female IDENTIFICATION BABY A Verification Date/Time: 10/16/2017 21:55 ID Band Number: [id number] Mother's Name Verified: Yes RN Verifying Infant: Grisel RN Additional Verifying Personnel: Ignacio palomino RN WEIGHT/LENGTH BABY A Birthweight (gm): 3530 Infant Weight (lb): 7 Infant Weight (oz): 13 Length (in): 21.00 Length (cm): 53.34 CORD INFORMATION BABY A No. Cord Vessels: 3 Nuchal Cord : Around Neck x1, Loose Cord Blood Taken: Yes-For Storage (Mom's Blood type +) Infant Suction: Mouth; Nose ASSESSMENT BABY A Complications: Other Complications- Other: no care Physical Findings at Delivery: Within Normal Limits; Molding of the Head Infant Respirations: Appears Normal Mercury Cell Cleaner/ALS Called : No Infant Care By: Patricia Cespedes RN Transferred To: [facility] BABY B INFORMATION : N/A SIGNATURES Signature: with User ID: [email or web address]
--- NOTE | 2017-10-16 23:55 | Admission Physical ---
Datetime Report Generated by CPN: 10/16/2017 23:54 CURRENT ADMISSION Chief Complaint: Uterine Contractions; Suspected Ruptured Membranes Chief Complaint Other: no care and uncertain LMP Indication for Induction: Not Applicable Indication for Induction: Active Labor; Ruptured Membranes Admit Plan: Admit to Unit; Initiate Labor Protocol ALLERGIES Medication Allergies: No Medication Allergies: No Known Allergies (10/16/2017) Medication Allergies: No Known Allergies (11/14/2016) Latex: No Latex Allergies OBSTETRICAL HISTORY : 3 Para: 2 Term: 2 : 0 SAB: 0 IAB: 0 Ectopic: 0 Livin Cesareans: 0 VBACs: 0 Multiple Births: 0 Current Procedures: None SEE RECORDS Alcohol: No Marijuana : No Cocaine: No Other Illicit Drugs: No Cigarettes: Never Smoker. [id number] PHYSICAL EXAM General: Normal HEENT: Normal Neurologic: Normal Thyroid: Normal Heart: Normal Lungs: Normal Breast: Normal Back: Normal Abdomen: Normal Genitourinary Exam: Normal Extremities: Normal DTRs: Normal Pelvic Type: Adequate Vital Signs: Reviewed; Within Normal Limits VAGINAL EXAM Dilatation: 7 Effacement: 90 Station: 0 MEMBRANES Pooling: Positive Membranes: Ruptured Amniotic Fluid Color: Bloody FETUS A Monitoring: External US FHR- Baseline: 130 Variability: Moderate 6-25bpm Accelerations: 15X15 Decelerations: Late FHR Category: Category II Presentation: Vertex Admit Comment: patient with no PNC and uncertain LMP of "sometime in January I think" previous children are not in patient's custody. Delivery is imminent. ANIMAL HUSBANDRY TECHNICIAN Maggie Morfin made aware of situation. PLANS FOR LABOR AND DELIVERY Labor and Delivery: None Pain Management: None Feeding Preference: Bottle Benefit of Breast Feed Discussed: Yes Circumcision: N/A INFORMED CONSENT Signature: with User ID: [email or web address]
[2017-10-17 03:21] LABS: CHLAM PCR NOT DETECTED (NOT DETECT); GON PCR NOT DETECTED (NOT DETECT)
[2017-10-17] MEDS: IBUPROFEN 800 MG TABLET PO SCH ×3 (05:10→21:43)
[2017-10-17 08:04] LABS: HEMATOCRIT 27.8 % (36.0-47.0); HEMOGLOBIN 8.9 g/dL (12.0-15.5); MEAN CORPUSCULAR HEMOGLOBIN 21.3 pg (27.0-33.4); MEAN CORPUSCULAR VOLUME 67 fl (80-97); PLATELET COUNT 224 10^3/uL (150-450); RED BLOOD COUNT 4.16 10^6/uL (3.72-5.28); RED CELL DISTRIBUTION WIDTH 19.6 % (11.5-14.0)
[2017-10-17] MEDS: PRENATAL VITAMIN W DHA CAPSULE PO SCH (09:16)
[2017-10-17] MEDS: SENNOSIDES/DOCUSATE 8.6-50 MG 1 EACH TABLET PO SCH (09:16)
[2017-10-17] MEDS: DOCUSATE SODIUM 100 MG CAPSULE PO SCH ×2 (09:16→18:00)
[2017-10-17] MEDS: FAMOTIDINE 20 MG TABLET PO SCH ×2 (09:16→21:44)
[2017-10-17] MEDS: FERROUS SULFATE 325 MG TABLET PO SCH ×2 (09:16→18:00)
--- NOTE | 2017-10-17 10:44 | PDOC PROGRESS REPORT ---
Subjective-OB Subjective: Post Delivery Day: 27 year old. Denies any needs at this time baby up for adoption doing well offers no complaints ff@u-2 mild lochia anemia- continue iron bid media planner completed d/c home tomorrow Physical Exam (OB) Vital Signs: Temp Pulse Resp BP Pulse Ox 97.4 F 80 18 115/67 99 10/17/17 00:23 10/17/17 00:23 10/17/17 00:23 10/17/17 00:23 10/17/17 00:23 Intake & Output 10/16/17 10/17/17 10/18/17 06:59 06:59 06:59 Weight 84.5 kg - PIH/Pre-Eclampsia Clonus: Negative Headache: Absent Epigastric Pain: No Visual Changes: No - Lochia Lochia Amount: Scant < 10 ml Lochia Color: Rubra/Red - Abdomen Description: Soft, Round Hernia Present: No Fundal Description: Firm, Midline Fundal Height: u/u - u/2 Objective-Diagnostic Laboratory: 10/17/17 07:20 10/16/17 10/16/17 10/16/17 21:05 21:30 21:30 WBC 10.7 H RBC 4.53 Hgb 9.5 L Hct 30.3 L MCV 67 L MCH 21.0 L MCHC 31.4 L RDW 19.9 H Plt Count 261 Seg Neutrophils % 76.7 Lymphocytes % 16.1 Monocytes % 6.3 Eosinophils % 0.6 Basophils % 0.3 Absolute Neutrophils 8.2 Absolute Lymphocytes 1.7 Absolute Monocytes 0.7 Absolute Eosinophils 0.1 Absolute Basophils 0.0 Urine Color YELLOW Urine Appearance SLIGHTLY-CLOUDY Urine pH 7.0 Ur Specific [place] 1.004 Urine Protein NEGATIVE Urine Glucose (UA) NEGATIVE Urine Ketones NEGATIVE Urine Blood MODERATE H Urine Nitrite NEGATIVE Ur Leukocyte Esterase LARGE H Urine WBC (Auto) 49 Urine RBC (Auto) 1 Blood Type A POSITIVE Antibody Screen NEGATIVE 10/17/17 07:20 WBC 13.0 H RBC 4.16 Hgb 8.9 L Hct 27.8 L MCV 67 L MCH 21.3 L MCHC 32.0 RDW 19.6 H Plt Count 224 Seg Neutrophils % Lymphocytes % Monocytes % Eosinophils % Basophils % Absolute Neutrophils Absolute Lymphocytes Absolute Monocytes Absolute Eosinophils Absolute Basophils Urine Color Urine Appearance Urine pH Ur Specific [place] Urine Protein Urine Glucose (UA) Urine Ketones Urine Blood Urine Nitrite Ur Leukocyte Esterase Urine WBC (Auto) Urine RBC (Auto) Blood Type Antibody Screen
[2017-10-18] MEDS: IBUPROFEN 800 MG TABLET PO SCH ×2 (05:03→14:46)
[2017-10-18 08:39] LABS: HEPATITIS C VIRUS AB <0.1 s/co ratio (0.0-0.9)
[2017-10-18 08:46] VITALS: BP 120/78
[2017-10-18 09:06] LABS: HEPATITS B SURFACE ANTIGEN Negative (Negative)
[2017-10-18] MEDS: FERROUS SULFATE 325 MG TABLET PO SCH (09:16)
[2017-10-18] MEDS: PRENATAL VITAMIN W DHA CAPSULE PO SCH (09:16)
[2017-10-18] MEDS: DOCUSATE SODIUM 100 MG CAPSULE PO SCH (09:16)
[2017-10-18] MEDS: FAMOTIDINE 20 MG TABLET PO SCH (09:16)
[2017-10-18] MEDS: SENNOSIDES/DOCUSATE 8.6-50 MG 1 EACH TABLET PO SCH (09:17)
--- NOTE | 2017-10-18 12:32 | PDOC DISCHARGE SUMMARY ---
Final Diagnosis Discharge Date: 10/18/17 - Final Diagnosis (1) Delivery normal Is this a current diagnosis for this admission?: Yes (2) No care in current Is this a current diagnosis for this admission?: Yes Discharge Data - Discharge Medication Home Medications: Vit/Iron Fum/Folic AC [ Tablet] 1 tab PO DAILY 09/21/15 Reason(s) for Admission: Onset of Labor Procedures: None Intrapartum Procedure(s): Spontaneous Vaginal Delivery - Diagnosis Test Laboratory: Temp Pulse Resp BP Pulse Ox 98.0 F 79 14 120/78 100 10/18/17 07:56 10/18/17 07:56 10/18/17 07:56 10/18/17 07:56 10/18/17 07:56 10/16/17 10/16/17 10/17/17 21:05 21:30 07:20 RBC 4.53 4.16 Hgb 9.5 L 8.9 L Hct 30.3 L 27.8 L Urine Opiates Screen NEGATIVE - Discharge information/Instructions Discharge Activity: Balance Activity w/Rest, No Lifting Over 10 Pounds, Pelvic Rest Discharge Diet: Regular Disposition: HOME, SELF-CARE Follow up with: [facility] in: 4 - [facility] go to [facility] also if unable to come to [facility] due to insurance issues
[2017-10-18] MEDS ORDERED: MEDROXYPROGESTERONE ACET INJ 150 MG/1 ML VIAL IM ONE ×2 (12:37→17:00)
== END 2017-10-18 17:20 | disposition home or self-care (01) | DRG 775 ==
LOC: LC 20:48 → LR 21:33 → 2S 23:53
PROVIDERS: ADMIT Obstetrics & Gynecology; ATTEND Obstetrics & Gynecology
PROC: 10E0XZZ Delivery of Products of Conception, External Approach (ICD-10-PCS; principal; 2017-10-16)
PROC: 4A1HXCZ Monitoring of Products of Conception, Cardiac Rate, External Approach (ICD-10-PCS; 2017-10-16)
DX: O62.3 Precipitate labor (principal); Z28.21 Immunization not carried out because of patient refusal; Z37.0 Single live birth
CPT/HCPCS: 36415; 59025; 80307; 81001; 85025; 85027; 86592; 86701; 86762; 86803; 86804; 86850; 86900; 86901; 87340; 87491; 87591; J2540; J2590; J3490

== ENCOUNTER 2018-10-23 01:41 | Inpatient (IN) | payer SELFPAY ==
[2018-10-23 02:21] LABS: APPEARANCE,URINE TURBID; BILIRUBIN,URINE NEGATIVE (NEGATIVE); COLOR,URINE YELLOW; GLUCOSE, URINE NEGATIVE (NEGATIVE); KETONES,URINE 20 mg/dL (NEGATIVE); LEUKOCYTE ESTERASE,URINE LARGE (NEGATIVE); NITRITE,URINE NEGATIVE (NEGATIVE); PROTEIN,URINE NEGATIVE (NEGATIVE); URINE SPECIFIC GRAVITY 1.006; UROBILINOGEN,URINE NEGATIVE mg/dL (<2.0)
[2018-10-23 02:50] LABS: ABSOLUTE EOSINOPHILS # (AUTO) 0.1 10^3/uL (0.0-0.6); ABSOLUTE LYMPHOCYTES (AUTO) 1.5 10^3/uL (0.5-4.7); ABSOLUTE MONOCYTES (AUTO) 0.6 10^3/uL (0.1-1.4); ABSOLUTE NEUT (AUTO) 7.9 10^3/uL (1.7-8.2); BASOPHILS % (AUTO) 0.5 % (0-2); EOSINOPHILS % (AUTO) 1.1 % (0-6); HEMATOCRIT 37.8 % (36.0-47.0); LYMPHOCYTES % (AUTO) 15.3 % (13-45); MEAN CORPUSCULAR HEMOGLOBIN 30.2 pg (27.0-33.4); MEAN CORPUSCULAR HGB CONC 34.3 g/dL (32.0-36.0); MEAN CORPUSCULAR VOLUME 88 fl (80-97); MONOCYTES % (AUTO) 5.5 % (3-13); PLATELET COUNT 136 10^3/uL (150-450); RED CELL DISTRIBUTION WIDTH 15.4 % (11.5-14.0); SEGMENTED NEUTROPHILS % (AUTO) 77.6 % (42-78); TOTAL CELLS COUNTED % (AUTO) 100 %; WHITE BLOOD COUNT 10.1 10^3/uL (4.0-10.5)
[2018-10-23] MEDS ORDERED: MISOPROSTOL 0.2 MG TABLET ONE (02:52)
[2018-10-23] MEDS ORDERED: LIDOCAINE 1% INJ-PF (10 MG/ML) 30 ML SDV ONE (02:52)
[2018-10-23] MEDS ORDERED: OXYTOCIN 10 UNIT/ML VIAL ONE (02:52)
[2018-10-23] MEDS ORDERED: OXYTOCIN/NORMAL SALINE 20 UNIT/1,000 ML RTUINJ ONE (02:52)
[2018-10-23] MEDS ORDERED: PENICILLIN G-K 5 MILLION UNIT VIAL ONE (02:54)
[2018-10-23] MEDS ORDERED: RINGERS SOLUTION,LACTATED 1,000 ML IV PRN (03:10)
--- NOTE | 2018-10-23 03:21 | RADIOLOGY REPORT (SQ) ---
EXAM DESCRIPTION: US LIMITED COMPLETED DATE/TME: 10/23/2018 00:00 CLINICAL HISTORY: 28 years, Female, no pnc COMPARISON: None. TECHNIQUE: Transabdominal sonographic images in a second/third trimester patient. LIMITATIONS: None. FINDINGS: There is a single, live intrauterine gestation in the cephalic presentation. The placenta is posterior and fundal in location with a grade 1 echotexture. No evidence for previa. heart tones obtained at 145 bpm. Amniotic fluid index is 4.7 cm. A detailed anatomic assessment was not performed. Current ultrasound age is 38 weeks 1 day. Estimated weight 3399 g +/- 503 g. Cervical length was not assessed at this time. IMPRESSION: Single, live intrauterine gestation with current ultrasound age 38 weeks 1 day. Amniotic fluid index is 4.7 cm. Close obstetric follow-up recommended copyright 2010 [email or web address]- All Rights Reserved
--- NOTE | 2018-10-23 03:28 | Admission Physical ---
Datetime Report Generated by CPN: 10/23/2018 03:28 CURRENT ADMISSION Chief Complaint: Uterine Contractions Indication for Induction: Not Applicable Admit Impression : Term, Intrauterine ; Active Labor; Intact Membranes Admit Plan: Admit to Unit; Initiate Labor Protocol ALLERGIES Medication Allergies: No Medication Allergies: No Known Allergies (10/23/2018) Latex: No Latex Allergies OBSTETRICAL HISTORY : 4 Para: 3 Term: 3 : 0 SAB: 0 IAB: 0 Ectopic: 0 Livin Cesareans: 0 VBACs: 0 Multiple Births: 0 Gestational Diabetes: No Rh Sensitization: No Incompetent Cervix: No NICOLÁS: No Infertility: No ART Treatment: No Uterine Anomaly: No IUGR: No Hx Previous C/S: No Macrosomia: No Hx Loss/Stillborn: No PIH: No Hx : No Placenta Previa/Abruption: No Depression/PP Depression: No PTL/PROM: No Post Hemorrhage: No Current Procedures: None Obstetrical History Comments: female infant, delivered at [facility] G2-11/14/16 male No PNC-given up for adoption, [facility] at [facility] G3-10/16/17 female No PNC-given up for adoption, delivered at [facility] G4-Current No PNC SEE RECORDS Alcohol: No Marijuana : No Cocaine: No Other Illicit Drugs: No Cigarettes: Never Smoker. 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 Surgery: No Heart Disease: No Hosp/Surgery: Yes Autoimmune Disorder: No Anesthetic Complications: No Kidney Disease: No Abnormal Pap Smear: Yes Neuro/Epilepsy: No Psychiatric Disorders: No Other Medical Diseases: No Hepatitis/Liver Disease: No Significant Family History: No Varicosities/Phlebitis: No Trauma/Violence : No Thyroid Dysfunction: No Medical History Comments: Childbirth x 3; had abnormal pap a few years ago INFECTIOUS HISTORY Gonorrhea: No Genital Herpes: No Chlamydia: No Tuberculosis: No Syphilis: No Hepatitis: No HIV/AIDS Exposure: No Rash or Viral Illness: No HPV: No PHYSICAL EXAM General: Normal HEENT: Normal Neurologic: Normal Thyroid: Normal Heart: Normal Lungs: Normal Breast: Normal Back: Normal Abdomen: Normal Genitourinary Exam: Normal Extremities: Normal DTRs: Normal Pelvic Type: Adequate Vital Signs: Reviewed; Within Normal Limits VAGINAL EXAM Dilatation: 7 Effacement: 90 Station: -1 Contraction Comments: q 2-4 MEMBRANES Membranes: Intact FETUS A Monitoring: External US FHR- Baseline: 140s Accelerations: 15X15 Decelerations: None FHR Category: Category I Admit Comment: No care PLANS FOR LABOR AND DELIVERY Labor and Delivery: None Pain Management: Natural; Medications; Local; Epidural Feeding Preference: Formula Benefit of Breast Feed Discussed: Yes Circumcision: doesn't know INFORMED CONSENT Signature: with User ID: [email or web address]
[2018-10-23 03:32] LABS: RUBELLA INTERPRETATION POSITIVE
[2018-10-23 03:52] LABS: CHLAM PCR NOT DETECTED (NOT DETECT); GON PCR NOT DETECTED (NOT DETECT)
[2018-10-23] MEDS ORDERED: DIBUCAINE 1% OINTMENT 28 GM TP PRN (04:11)
[2018-10-23] MEDS ORDERED: OXYTOCIN/NORMAL SALINE 20 UNIT/1,000 ML RTUINJ IV PRN (04:11)
[2018-10-23] MEDS ORDERED: MEASLES,MUMPS&RUBELLA VACC/PF 0.5 ML VIAL SUBCUT PRN (04:11)
[2018-10-23] MEDS ORDERED: DIPH/PERTUSS(ACELL)/TETANUS VAC/PF 0.5 ML SYR (>=10YO) IM PRN (04:11)
[2018-10-23] MEDS ORDERED: ACETAMINOPHEN WITH CODEINE #3 TABLET PO PRN (04:11)
[2018-10-23] MEDS ORDERED: ZOLPIDEM TARTRATE 5 MG TABLET PO PRN (04:11)
[2018-10-23] MEDS ORDERED: BENZOCAINE/MENTHOL AEROSOL SPRAY 56 ML TOP PRN (04:11)
--- NOTE | 2018-10-23 06:05 | Delivery Summary ---
Del Sum A-C Datetime Report Generated by CPN: 10/23/2018 06:05 DELIVERY PERSONNEL DELIVERY PERSONNEL: [id number] Delivery Doctor:: Lisa Jain MD Labor and Delivery Nurse:: Isha Sesay RN Nursery Nurse:: Valeria Cespedes RN Report Analyst/ELECTRIC LINEMAN: Liliana Green, ST MATERNAL INFORMATION Delivery Anesthesia: None Medications After Delivery: Pitocin Drip 20 Units/1000ml NSS Estimated Blood Loss (ml): 300 ml Maternal Complications: Precipitous Labor (<3hrs) Provider Comments: of a viable male at 0353 with an OA w/thick meconium presentation; APGARS 8, 9; no lacs LABOR SUMMARY EDC: 11/05/2018 00:00 No. Babies in Womb: 1 Attempted: No Labor Anesthesia: None LABOR INFORMATION Reason for Induction: Not Applicable Onset of Labor: 10/23/2018 01:48 Complete Dilatation: 10/23/2018 03:50 Oxytocin: N/A Group B Beta Strep: Unknown Antibiotics # of Doses: 1 Antibiotics Time of Last Dose: 0303 Name of Antibiotic Given: Penicillin Steroids Given: None Reason Steroids Not Administered: Not Applicable MEMBRANES Membranes Rupture Method: Artificial Rupture of Membranes: 10/23/2018 03:46 Length of Rupture (hr): 0.12 Amniotic Fluid Color: Heavy Meconium Amniotic Fluid Amount: Moderate Amniotic Fluid Odor: Normal STAGES OF LABOR Stage 1 hr: 2 Stage 1 min: 2 Stage 2 hr: 0 Stage 2 min: 3 Stage 3 hr: 0 Stage 3 min: 5 Total Time in Labor hr: 2 Total Time in Labor min: 10 VAGINAL DELIVERY Episiotomy: None Laceration #1: None Laceration Repair: Not Applicable Sponge Count Correct: Yes Sharps Count Correct: N/A CSECTION DELIVERY Primary Indication: N/A Secondary Indication: N/A CSection Incidence: N/A Labor: N/A Elective: N/A CSection Incision: N/A BABY A INFORMATION Infant Delivery Date/Time: 10/23/2018 03:53 Method of Delivery: Vaginal Born in Route : No : N/A Forceps: N/A Vacuum Extraction: N/A Shoulder Dystocia : No PRESENTATION/POSITION BABY A Presentation: Cephalic Cephalic Presentation: Vertex Vertex Position: Occipital Anterior Breech Presentation: N/A PLACENTA INFORMATION BABY A Placenta Delivery Time : 10/23/2018 03:58 Placenta Method of Delivery: Spontaneous Placenta Status: Delivered SCORES BABY A Heart Rate 1 min: >100 bpm Resp Effort 1 min: Good Cry Reflex Irritability 1 min: Cough or Sneeze or Pulls Away Muscle Tone 1 min: Active Motion Color 1 min: Blue/Pale Resuscitation Effort 1 min: Tactile Stimulation SCORE 1 MIN: 8 Heart Rate 5 min: >100 bpm Resp Effort 5 min: Good Cry Reflex Irritability 5 min: Cough or Sneeze or Pulls Away Muscle Tone 5 min: Active Motion Color 5 min: Body [place], Extremities Blue Resuscitation Effort 5 min: Tactile Stimulation SCORE 5 MIN: 9 INFANT INFORMATION BABY A Gestational Age at Delivery: 38.1 Gestational Status: Early Term- 37- 38.6 Weeks Outcome : Liveborn Condition : Stable Sex: Male IDENTIFICATION BABY A Verification Date/Time: 10/23/2018 04:21 ID Band Number: [id number] Mother's Name Verified: Yes RN Verifying : S. Maria Dolorestibsocorroir, RNC _ A. Misyak, RN WEIGHT/LENGTH BABY A Birthweight (gm): 3863 Weight (lb): 8 Weight (oz): 8 Length (in): 20.00 Infant Length (cm): 50.80 CORD INFORMATION BABY A No. Cord Vessels: 3 Nuchal Cord : N/A Cord Blood Taken: Yes-For Storage (Mom's Blood type +) Infant Suction: Mouth; Nose; Pharynx ASSESSMENT BABY A Infant Complications: Meconium Physical Findings at Delivery: Within Normal Limits Respirations: Appears Normal Diamond Cleaner/ALS Called : No Infant Care By: Patricia Cespedes RN Transferred To: Remains with Mother BABY B INFORMATION : N/A SIGNATURES Signature: with User ID: [email or web address]
[2018-10-23] MEDS ORDERED: PRENATAL VITAMIN W DHA CAPSULE PO ONE (10:44)
[2018-10-23] MEDS ORDERED: SENNOSIDES/DOCUSATE 8.6-50 MG 1 EACH TABLET ONE (10:45)
[2018-10-23] MEDS ORDERED: DOCUSATE SODIUM 100 MG CAPSULE ONE (10:45)
[2018-10-23] MEDS ORDERED: IBUPROFEN 800 MG TABLET ONE (10:45)
[2018-10-23] MEDS ORDERED: FERROUS SULFATE 325 MG TABLET PO ONE (10:45)
[2018-10-23] MEDS: FERROUS SULFATE 325 MG TABLET PO SCH ×2 (11:11→18:00)
[2018-10-23] MEDS: PRENATAL VITAMIN W DHA CAPSULE PO SCH (11:12)
[2018-10-23] MEDS: SENNOSIDES/DOCUSATE 8.6-50 MG 1 EACH TABLET PO SCH (11:12)
[2018-10-23] MEDS: IBUPROFEN 800 MG TABLET PO SCH ×3 (11:12→23:00)
[2018-10-23] MEDS: DOCUSATE SODIUM 100 MG CAPSULE PO SCH ×2 (11:12→18:00)
[2018-10-23 12:20] LABS: URINE AMPHETAMINES SCREEN NEGATIVE; URINE BARBITURATES SCREEN NEGATIVE; URINE BENZODIAZEPINES SCREEN NEGATIVE; URINE COCAINE SCREEN NEGATIVE; URINE MARIJUANA (THC) SCREEN NEGATIVE; URINE METHADONE SCREEN NEGATIVE; URINE PHENCYCLIDINE SCREEN NEGATIVE
[2018-10-24] MEDS: IBUPROFEN 800 MG TABLET PO SCH ×3 (06:28→21:00)
[2018-10-24 06:38] LABS: HEPATITIS C VIRUS AB <0.1 s/co ratio (0.0-0.9)
[2018-10-24 06:49] LABS: HEMATOCRIT 37.4 % (36.0-47.0); HEMOGLOBIN 12.9 g/dL (12.0-15.5); MEAN CORPUSCULAR HEMOGLOBIN 30.5 pg (27.0-33.4); MEAN CORPUSCULAR HGB CONC 34.6 g/dL (32.0-36.0); MEAN CORPUSCULAR VOLUME 88 fl (80-97); PLATELET COUNT 136 10^3/uL (150-450); RED BLOOD COUNT 4.23 10^6/uL (3.72-5.28); RED CELL DISTRIBUTION WIDTH 15.7 % (11.5-14.0)
[2018-10-24 07:23] LABS: HEPATITS B SURFACE ANTIGEN Negative (Negative)
[2018-10-24] MEDS: FERROUS SULFATE 325 MG TABLET PO SCH ×2 (09:42→19:03)
[2018-10-24] MEDS: SENNOSIDES/DOCUSATE 8.6-50 MG 1 EACH TABLET PO SCH (09:42)
[2018-10-24] MEDS: PRENATAL VITAMIN W DHA CAPSULE PO SCH (09:42)
[2018-10-24] MEDS: DOCUSATE SODIUM 100 MG CAPSULE PO SCH ×2 (09:42→19:04)
--- NOTE | 2018-10-24 10:04 | PDOC PROGRESS REPORT ---
Subjective-OB Progress Note for:: 10/24/18 Subjective: Doing well, no c/o, bottle feeding Physical Exam (OB) Vital Signs: Temp Pulse Resp BP Pulse Ox 97.8 F 79 15 120/72 100 10/24/18 07:23 10/24/18 07:23 10/24/18 07:23 10/24/18 07:23 10/24/18 07:23 Intake & Output 10/23/18 10/24/18 10/25/18 06:59 06:59 06:59 Weight 89.7 kg - PIH/Pre-Eclampsia DTR's: 2 + Clonus: Negative Headache: Absent Epigastric Pain: No Visual Changes: No - Lochia Lochia Amount: Small 10-25 ml Lochia Color: Rubra/Red - Abdomen Description: Soft Hernia Present: No Fundal Description: Firm, Midline Fundal Height: u/u - u/2 Objective-Diagnostic Laboratory: 10/24/18 06:35 10/24/18 06:35 WBC 11.0 H RBC 4.23 Hgb 12.9 Hct 37.4 MCV 88 MCH 30.5 MCHC 34.6 RDW 15.7 H Plt Count 136 L Assessment and Plan(PN) - Assessment and Plan (1) with plans to adopt out baby Qualifiers: Trimester: unspecified trimester Qualified Code(s): Z34.90 - Encounter for supervision of normal , unspecified, unspecified trimester Is this a current diagnosis for this admission?: Yes (2) No care in current Qualifiers: Trimester: first trimester Qualified Code(s): O09.31 - Supervision of with insufficient care, first trimester Is this a current diagnosis for this admission?: Yes (3) Delivery normal Is this a current diagnosis for this admission?: Yes - Time Spent with Patient Time with patient: Less than 15 minutes Medications reviewed and adjusted accordingly: Yes - Disposition Anticipated Discharge: Home Within: within 24 hours
[2018-10-25] MEDS: IBUPROFEN 800 MG TABLET PO SCH ×2 (06:18→14:17)
[2018-10-25 08:21] VITALS: BP 125/70
[2018-10-25] MEDS: FERROUS SULFATE 325 MG TABLET PO SCH ×2 (09:53→18:28)
[2018-10-25] MEDS: SENNOSIDES/DOCUSATE 8.6-50 MG 1 EACH TABLET PO SCH (09:53)
[2018-10-25] MEDS: PRENATAL VITAMIN W DHA CAPSULE PO SCH (09:53)
[2018-10-25] MEDS: DOCUSATE SODIUM 100 MG CAPSULE PO SCH ×2 (09:53→18:28)
--- NOTE | 2018-10-25 11:48 | PDOC DISCHARGE SUMMARY ---
Final Diagnosis Discharge Date: 10/25/18 - Final Diagnosis (1) Delivery normal Is this a current diagnosis for this admission?: Yes Discharge Data - Discharge Medication Prescriptions: Ibuprofen [Motrin 800 mg Tablet] 800 mg PO Q8HP PRN #60 tablet PRN Reason: Home Medications: Vit/Iron Fum/Folic AC [ Tablet] 1 tab PO DAILY 09/21/15 Ibuprofen [Motrin 800 mg Tablet] 800 mg PO Q8HP PRN #60 tablet 10/25/18 Procedures: NST Intrapartum Procedure(s): Spontaneous Vaginal Delivery - Diagnosis Test Laboratory: Temp Pulse Resp BP Pulse Ox 97.9 F 83 15 125/70 100 10/25/18 11:30 10/25/18 11:30 10/25/18 11:30 10/25/18 07:59 10/25/18 11:30 10/23/18 10/23/18 10/24/18 02:33 11:15 06:35 RBC 4.30 4.23 Hgb 13.0 12.9 Hct 37.8 37.4 Urine Opiates Screen NEGATIVE - Discharge information/Instructions Discharge Activity: Balance Activity w/Rest, Pelvic Rest Discharge Diet: Regular Disposition: HOME, SELF-CARE Follow up with: [facility] in: 4, Weeks
== END 2018-10-25 20:14 | disposition home or self-care (01) | DRG 807 ==
LOC: LC 01:41 → LR 02:55 → 2S 11:31
PROVIDERS: ADMIT Obstetrics & Gynecology; ATTEND Obstetrics & Gynecology
PROC: 10E0XZZ Delivery of Products of Conception, External Approach (ICD-10-PCS; principal; 2018-10-23)
PROC: 3E0234Z Introduction of Serum, Toxoid and Vaccine into Muscle, Percutaneous Approach (ICD-10-PCS; 2018-10-25)
PROC: 3E0234Z Introduction of Serum, Toxoid and Vaccine into Muscle, Percutaneous Approach (ICD-10-PCS; 2018-10-25)
DX: O77.0 Labor and delivery complicated by meconium in amniotic fluid (principal); Z37.0 Single live birth; O62.3 Precipitate labor; Z3A.38 38 weeks gestation of pregnancy; Z23 Encounter for immunization
CPT/HCPCS: 36415; 76815; 80307; 81005; 84112; 85025; 85027; 86592; 86701; 86762; 86803; 86804; 86850; 86900; 86901; 87081; 87340; 87491; 87591; 88307; 90471; 90686; 90715; G0008; J2540; J2590; J3490